=== PATIENT | female | born 1980 | race African-American/Black ===

== ENCOUNTER 2018-12-23 10:02 | Emergency (ER) | payer MEDICAID ==
[~2018-12-23] VITALS: Ht 170.2 cm; Wt 70.0 kg
[2018-12-23 11:06] LABS: BASOPHILS % 0.5 % (0.0-2.0); EOSINOPHILS % 0.4 % (0.0-5.0); HEMATOCRIT. 36.5 % (36.0-48.0); HEMOGLOBIN. 12.7 g/dL (12.0-16.0); LYMPHOCYTES % 21.6 % (20.0-50.0); MEAN CORPUSCULAR HEMOGLOBIN 33.6 pg (28.0-32.0); MEAN CORPUSCULAR VOLUME 96.8 fL (81.0-99.0); MEAN PLATELET VOLUME 8.7 fl (7.4-10.4); MONOCYTES % 5.1 % (2.0-8.0); NEUTROPHILS % 72.4 % (40.0-76.0); PLATELET 244 x1000/uL (130-400); RED BLOOD CELL COUNT 3.77 mill/uL (4.2-5.4)
[2018-12-23 11:13] LABS: CHLORIDE 106 mEq/L (98-107)
[2018-12-23 11:21] LABS: HCG SCREEN NEGATIVE
[2018-12-23] MEDS ORDERED: IOHEXOL-350 100 ML BOTTLE ONE (12:08)
[2018-12-23] MEDS ORDERED: ACETAMINOPHEN 325MG TABLET PO ONE (13:00)
[2018-12-23 13:45] VITALS: BP 123/86
== END 2018-12-23 14:05 | disposition home or self-care (01) ==
LOC: ER 10:09
DX: R53.1 Weakness (principal); R07.89 Other chest pain; R06.02 Shortness of breath
CPT/HCPCS: 36415; 71045; 71275; 80053; 81025; 83880; 84484; 84703; 85025; 85379; 93005; 93970; 99284; Q9967